=== PATIENT | female | born 1945 | race Caucasian/White ===

== ENCOUNTER 2020-06-02 14:30 | Inpatient (IN) | payer MEDICARE ==
[~2020-06-02] VITALS: Ht 162.6 cm; Wt 47.8 kg
[~2020-06-02 14:30] MED LIST: ALBU18HF INH; AMIO100T4 PO; ASPI-963 PO; ATOR20TA37 PO; CARV3.1212 PO; FLUT100B INH; FURO20TA3 PO; LISI5TAB7 PO; SPIR25TA PO
--- NOTE | 2020-06-02 14:32 | NUR ---
Pt brought into room by EMS, report received, pt placed on monitor and cementer hand completed. Pt denies any N/V/D/C, pt denies any recent falls or trauma, states some mild decrease in uop but has not felt like eating/drinking much. Pt states dizziness upon standing with generalized weakness the last 2 days. EMS reported BP's 80's/50's with FSBS 253 enroute.
--- NOTE | 2020-06-02 14:39 | NUR ---
Asked MD to come to bedside secondary to critical low BP with tachycardia. NS 1 liter bolus started at wide open rate.
--- NOTE | 2020-06-02 14:54 | NUR ---
Pt changed into gown, placed on O2 at 2L/min NC, and into Trendelenburg position. Report given to LISSA Freitas and care transferred.
[2020-06-02] MEDS ORDERED: SODIUM CHLORIDE FLUSH 10ML SYR IVF ONE (15:00)
[2020-06-02] MEDS ORDERED: SODIUM CHLORIDE 0.9% 1,000ML IVBOLUS ONE ×3 (15:00→16:00)
--- NOTE | 2020-06-02 15:17 | NUR ---
pt in bed alert and awake, aox3, denies pain or discomfort. persistent low blood pressure noted after 1l ns bolus. pt in modified trendelenburg position, no signs or symptoms of acute distress noted respirations even and unlabored. lab in to draw cultures, xray in for chest xray, rn at bedside to monitor. pt on monitoring and evaluation advisor, satting well on nasal cannula at 2l/min, ivf infusing well at lac.
[2020-06-02 15:30] LABS: BASOPHILS % (AUTO) 1 % (0-1); EOSINOPHILS % (AUTO) 0 % (1-7); LYMPHOCYTES % (AUTO) 11 % (22-44); MEAN CORPUSCULAR HEMOGLOBIN 27.8 pg (27.0-34.8); MEAN CORPUSCULAR HGB CONC 32.7 g/dL (32.4-35.8); MEAN PLATELET VOLUME 8.4 fL (7.4-10.4); MONOCYTES % (AUTO) 4 % (2-9); NEUTROPHILS % (AUTO) 83 % (42-75); PLATELET COUNT 248 x10^3/uL (130-400); RED BLOOD COUNT 4.77 x10^6/uL (3.82-5.3); RED CELL DISTRIBUTION WIDTH 16.4 % (9.6-15.2)
[2020-06-02 15:35] LABS: ALANINE AMINOTRANSFERASE 13 U/L (12-78); ANION GAP 12 mmol/L (5-15); CALCIUM 7.6 mg/dL (8.5-10.1); CHLORIDE 112 mmol/L (98-107); CREATININE 1.45 mg/dL (0.55-1.02)
[2020-06-02 15:39] LABS: ALKALINE PHOSPHATASE 89 U/L (45-117); BILIRUBIN,TOTAL 0.5 mg/dL (0.2-1.0); TOTAL PROTEIN 5.7 g/dL (6.4-8.2)
[2020-06-02 15:40] LABS: MICROSCOPIC AUTO
[2020-06-02 15:47] LABS: TROPONIN I 0.135 ng/mL (0.000-0.045)
[2020-06-02] MEDS ORDERED: ASPIRIN 81 MG TABLET CHEW ONE (15:54)
--- NOTE | 2020-06-02 15:58 | NUR ---
pt in bed with no signs or symptoms of acute distress noted respiraitons even and unlabored denies pain or discomfort at this time. pt refused offered aspirin, states that she vomits when she takes it. aware. 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
[2020-06-02] MEDS ORDERED: ASPIRIN 81 MG TABLET CHEW PO ONE (16:00)
--- NOTE | 2020-06-02 16:55 | NUR ---
pt caregiver marietta rosenberg called for update, states that she will be the leison for family. contact information as follows : [phone]. pt aware and agreeable.
--- NOTE | 2020-06-02 17:11 | NUR ---
pt in bed with no signs or symptoms of acute distress noted respirations even and unlabored, on telemetry monitor satting well on nc with 02 at 2l/min/ pt alert and awake, answers questions appropriately. denies need or discomfort at this time.
[2020-06-02 18:11] VITALS: BP 92/68
[2020-06-02] MEDS ORDERED: ACETAMINOPHEN 325 MG TABLET PO PRN (20:00)
[2020-06-02] MEDS ORDERED: AMIODARONE 150 MG in DEXTROSE 5% 100 ML IV ONE (20:00)
[2020-06-02] MEDS ORDERED: DOCUSATE 100 MG CAPSULE PO PRN (20:00)
[2020-06-02] MEDS: HEPARIN 5,000 UNITS/ML, 1ML SQ SCH (20:00)
[2020-06-02] MEDS ORDERED: LIDODERM 5% PATCH TD PRN (20:00)
[2020-06-02 20:26] VITALS: BP 86/62
[2020-06-02] MEDS ORDERED: FILTER 0.22 MICRON FOR AMIODARONE IV PRN (20:30)
[2020-06-02] MEDS: NICOTINE 21 MG/24 HR PATCH.TD24 TD SCH (20:36)
[2020-06-02 20:40] LABS: TROPONIN I 0.125 ng/mL (0.000-0.045)
[2020-06-02] MEDS: AMIODARONE 450 MG in DEXTROSE 5% 241 ML IV PRN (20:53)
[2020-06-02] MEDS ORDERED: PHARMACY MAY ADJ FOR RENAL FX MC PRN (22:30)
[2020-06-02] MEDS ORDERED: ALBUTEROL HFA 90 MCG/SPRAY INH PRN (22:30)
[2020-06-02] MEDS: ATORVASTATIN 20 MG TABLET PO SCH (22:52)
[2020-06-03] VITALS (7 sets, daily range): BP systolic 98–137; BP diastolic 7–96
[2020-06-03] MEDS: MELATONIN 5 MG TABLET PO PRN (00:31)
[2020-06-03 03:26] LABS: BASOPHILS % (AUTO) 1 % (0-1); EOSINOPHILS % (AUTO) 0 % (1-7); LYMPHOCYTES % (AUTO) 14 % (22-44); MEAN CORPUSCULAR HEMOGLOBIN 27.5 pg (27.0-34.8); MEAN PLATELET VOLUME 8.6 fL (7.4-10.4); MONOCYTES % (AUTO) 7 % (2-9); NEUTROPHILS % (AUTO) 78 % (42-75); PLATELET COUNT 226 x10^3/uL (130-400); RED BLOOD COUNT 4.75 x10^6/uL (3.82-5.3); RED CELL DISTRIBUTION WIDTH 16.9 % (9.6-15.2)
[2020-06-03 03:37] LABS: ANION GAP 11 mmol/L (5-15); CALCIUM 8.1 mg/dL (8.5-10.1); CHLORIDE 111 mmol/L (98-107); CREATININE 1.53 mg/dL (0.55-1.02)
[2020-06-03 03:47] LABS: TROPONIN I 0.129 ng/mL (0.000-0.045)
[2020-06-03] MEDS: AMIODARONE 450 MG in DEXTROSE 5% 241 ML IV PRN ×2 (03:49→15:45)
[2020-06-03] MEDS: HEPARIN 5,000 UNITS/ML, 1ML SQ SCH ×2 (04:00→14:31)
[2020-06-03] MEDS: FUROSEMIDE 20 MG TABLET PO SCH (08:31)
[2020-06-03] MEDS: SPIRONOLACTONE 25 MG TABLET PO SCH (08:31)
[2020-06-03] MEDS ORDERED: ASPIRIN 81 MG TABLET EC PO SCH (09:00)
[2020-06-03] MEDS: FLUTICASONE FUROATE 100MCG/INH INH SCH (09:00)
[2020-06-03] MEDS ORDERED: ADENOSINE 6 MG/2 ML ONE ×2 (10:27)
[2020-06-03] MEDS ORDERED: ADENOSINE 6 MG/2 ML IVPush ONE ×2 (11:00)
[2020-06-03] MEDS: CARVEDILOL 3.125 MG TABLET PO SCH (18:24)
[2020-06-03] MEDS: NICOTINE 21 MG/24 HR PATCH.TD24 TD SCH (18:25)
[2020-06-03] MEDS: ATORVASTATIN 20 MG TABLET PO SCH (20:46)
[2020-06-03] MEDS: APIXABAN 2.5 MG TABLET PO SCH (20:46)
[2020-06-03] MEDS ORDERED: TEMAZEPAM 15 MG CAPSULE PO ONE (21:00)
[2020-06-04 01:54] VITALS: BP 134/82
[2020-06-04] MEDS: CARVEDILOL 3.125 MG TABLET PO SCH ×2 (05:56→18:05)
[2020-06-04] MEDS: AMIODARONE 450 MG in DEXTROSE 5% 241 ML IV PRN (06:19)
[2020-06-04 07:27] VITALS: BP 110/77
[2020-06-04 08:43] VITALS: BP 116/77
[2020-06-04] MEDS: APIXABAN 2.5 MG TABLET PO SCH ×2 (08:48→19:58)
[2020-06-04] MEDS: FUROSEMIDE 20 MG TABLET PO SCH (08:48)
[2020-06-04] MEDS: SPIRONOLACTONE 25 MG TABLET PO SCH (08:49)
[2020-06-04] MEDS: AMIODARONE 200 MG TABLET PO SCH (08:49)
[2020-06-04] MEDS ORDERED: LISINOPRIL 5 MG TABLET PO SCH (09:00)
[2020-06-04] MEDS: FLUTICASONE FUROATE 100MCG/INH INH SCH (10:15)
[2020-06-04 13:00] VITALS: BP 111/71
[2020-06-04] MEDS ORDERED: FURO20TA3 PO ×2 (14:53)
[2020-06-04] MEDS ORDERED: LEVA15HF4 INH (14:53)
[2020-06-04] MEDS ORDERED: POTA20TA89 PO ×2 (14:53)
[2020-06-04 18:04] VITALS: BP 122/73
[2020-06-04 19:14] VITALS: BP 104/68
[2020-06-04] MEDS: MELATONIN 5 MG TABLET PO PRN (19:58)
[2020-06-04] MEDS: NICOTINE 21 MG/24 HR PATCH.TD24 TD SCH (19:58)
[2020-06-04] MEDS: ATORVASTATIN 20 MG TABLET PO SCH (19:58)
[2020-06-05] VITALS (10 sets, daily range): BP systolic 81–111; BP diastolic 51–75
[2020-06-05] MEDS: CARVEDILOL 3.125 MG TABLET PO SCH (06:02)
[2020-06-05] MEDS: FLUTICASONE FUROATE 100MCG/INH INH SCH (09:00)
[2020-06-05] MEDS: APIXABAN 2.5 MG TABLET PO SCH ×2 (10:29→21:08)
[2020-06-05] MEDS: AMIODARONE 200 MG TABLET PO SCH (10:29)
[2020-06-05] MEDS: SPIRONOLACTONE 25 MG TABLET PO SCH (10:29)
[2020-06-05] MEDS: NICOTINE 21 MG/24 HR PATCH.TD24 TD SCH (20:00)
[2020-06-05] MEDS: MELATONIN 5 MG TABLET PO PRN (21:08)
[2020-06-05] MEDS: ATORVASTATIN 20 MG TABLET PO SCH (21:08)
[2020-06-06 01:19] VITALS: BP 91/53
[2020-06-06 05:17] LABS: BASOPHILS % (AUTO) 1 % (0-1); EOSINOPHILS % (AUTO) 3 % (1-7); LYMPHOCYTES % (AUTO) 16 % (22-44); MEAN PLATELET VOLUME 9.5 fL (7.4-10.4); MONOCYTES % (AUTO) 10 % (2-9); NEUTROPHILS % (AUTO) 70 % (42-75); PLATELET COUNT 147 x10^3/uL (130-400); RED BLOOD COUNT 4.29 x10^6/uL (3.82-5.3); RED CELL DISTRIBUTION WIDTH 16.9 % (9.6-15.2)
[2020-06-06 05:28] LABS: ANION GAP 6 mmol/L (5-15); CALCIUM 8.3 mg/dL (8.5-10.1); CHLORIDE 111 mmol/L (98-107)
[2020-06-06 07:09] VITALS: BP 101/60
[2020-06-06] MEDS: FLUTICASONE FUROATE 100MCG/INH INH SCH (07:25)
[2020-06-06 08:32] VITALS: BP 112/68
[2020-06-06] MEDS: AMIODARONE 200 MG TABLET PO SCH (08:33)
[2020-06-06] MEDS: APIXABAN 2.5 MG TABLET PO SCH ×2 (08:33→20:14)
[2020-06-06] MEDS: SPIRONOLACTONE 25 MG TABLET PO SCH (08:37)
[2020-06-06 11:53] VITALS: BP 110/71
[2020-06-06 19:07] VITALS: BP 123/74
[2020-06-06] MEDS: NICOTINE 21 MG/24 HR PATCH.TD24 TD SCH (20:14)
[2020-06-06] MEDS: ATORVASTATIN 20 MG TABLET PO SCH (20:14)
[2020-06-06] MEDS: MELATONIN 5 MG TABLET PO PRN (22:46)
[2020-06-07] MEDS: FLUTICASONE FUROATE 100MCG/INH INH SCH (07:20)
[2020-06-07 07:28] VITALS: BP 129/78
[2020-06-07 08:32] VITALS: BP 126/80
[2020-06-07] MEDS: APIXABAN 2.5 MG TABLET PO SCH ×2 (08:33→20:27)
[2020-06-07] MEDS: CARVEDILOL 3.125 MG TABLET PO SCH ×2 (08:34→18:17)
[2020-06-07] MEDS: AMIODARONE 200 MG TABLET PO SCH (08:34)
[2020-06-07 10:26] VITALS: BP 113/77
[2020-06-07] MEDS: SPIRONOLACTONE 25 MG TABLET PO SCH (10:26)
[2020-06-07 13:56] VITALS: BP 144/87
[2020-06-07 18:18] VITALS: BP 127/80
[2020-06-07 18:28] VITALS: BP 132/76
[2020-06-07] MEDS: NICOTINE 21 MG/24 HR PATCH.TD24 TD SCH (20:27)
[2020-06-07] MEDS: ATORVASTATIN 20 MG TABLET PO SCH (20:27)
[2020-06-07] MEDS ORDERED: QUETIAPINE 25MG TABLET PO SCH (21:00)
[2020-06-08] MEDS: CARVEDILOL 3.125 MG TABLET PO SCH (06:09)
[2020-06-08 06:23] LABS: BASOPHILS % (AUTO) 1 % (0-1); EOSINOPHILS % (AUTO) 6 % (1-7); LYMPHOCYTES % (AUTO) 17 % (22-44); MEAN CORPUSCULAR HGB CONC 32.8 g/dL (32.4-35.8); MEAN PLATELET VOLUME 8.6 fL (7.4-10.4); MONOCYTES % (AUTO) 10 % (2-9); NEUTROPHILS % (AUTO) 66 % (42-75); PLATELET COUNT 192 x10^3/uL (130-400); RED BLOOD COUNT 4.71 x10^6/uL (3.82-5.3); RED CELL DISTRIBUTION WIDTH 17.1 % (9.6-15.2)
[2020-06-08 06:29] LABS: ANION GAP 5 mmol/L (5-15); CALCIUM 8.7 mg/dL (8.5-10.1); CHLORIDE 112 mmol/L (98-107); CREATININE 0.82 mg/dL (0.55-1.02)
[2020-06-08 06:39] VITALS: BP 114/73
[2020-06-08] MEDS: FLUTICASONE FUROATE 100MCG/INH INH SCH (07:55)
[2020-06-08 08:23] VITALS: BP 104/66
[2020-06-08] MEDS: APIXABAN 2.5 MG TABLET PO SCH (08:26)
[2020-06-08] MEDS: SPIRONOLACTONE 25 MG TABLET PO SCH (08:26)
[2020-06-08 10:30] VITALS: BP 93/61
[2020-06-08 11:57] VITALS: BP 106/65
[2020-06-08] MEDS: AMIODARONE 200 MG TABLET PO SCH (11:58)
[2020-06-08 12:23] VITALS: BP 98/63
[2020-06-08] MEDS ORDERED: APIXABAN 5 MG TABLET PO SCH (21:00)
== END 2020-06-08 15:03 | disposition home health service (06) | DRG 308 ==
LOC: ED 16:59 → EDIP 17:22 → 5SO 17:49
PROVIDERS: ADMIT Hospitalist; ATTEND Internal Medicine
DX: I47.1 Supraventricular tachycardia (principal); J96.01 Acute respiratory failure with hypoxia; I50.20 Unspecified systolic (congestive) heart failure; F03.91 Unspecified dementia, unspecified severity, with behavioral disturbance; F05 Delirium due to known physiological condition; I47.2 Ventricular tachycardia; I48.92 Unspecified atrial flutter; I44.7 Left bundle-branch block, unspecified; I95.2 Hypotension due to drugs; Z20.822 Contact with and (suspected) exposure to COVID-19; E78.5 Hyperlipidemia, unspecified; E86.0 Dehydration; I11.0 Hypertensive heart disease with heart failure; I25.10 Atherosclerotic heart disease of native coronary artery without angina pectoris; I25.5 Ischemic cardiomyopathy; I34.0 Nonrheumatic mitral (valve) insufficiency; J44.9 Chronic obstructive pulmonary disease, unspecified; N28.9 Disorder of kidney and ureter, unspecified; T50.2X5A Adverse effect of carbonic-anhydrase inhibitors, benzothiadiazides and other diuretics, initial encounter; Z79.899 Other long term (current) drug therapy; Z90.710 Acquired absence of both cervix and uterus; Z91.19 Patient's noncompliance with other medical treatment and regimen; Z79.891 Long term (current) use of opiate analgesic; Z87.891 Personal history of nicotine dependence; Z88.8 Allergy status to other drugs, medicaments and biological substances; Z88.0 Allergy status to penicillin; Z71.89 Other specified counseling
CPT/HCPCS: 36415; 71045; 80048; 80053; 81001; 83036; 83605; 83735; 83880; 84100; 84145; 84439; 84443; 84484; 85025; 87040; 87635; 93005; 93312; 93321; 93325; 94640; 99291; G0378; J0153; J1644; J7060; J0282; J7030